=== PATIENT | female | born 1945 | race Caucasian/White ===

== ENCOUNTER → 2016-10-20 | Outpatient (CLI) | payer MEDICARE ==
--- NOTE | 2016-10-21 13:43 | MM ---
Reason for exam: screening (asymptomatic). Last mammogram was performed 1 year and 2 months ago. History: Patient is postmenopausal. Taking other hormone for 10 years. Physical Findings: A clinical breast exam by your physician is recommended on an annual basis and results should be correlated with mammographic findings. MG 3D Screening Mammo W/Cad Bilateral CC and MLO view(s) were taken. Prior study comparison: August 05, 2015, bilateral MG 3d screening mammo w/cad. August 08, 2013, bilateral digital screening mammo w/CAD. There are scattered fibroglandular densities. There is chronic nodularity bilaterally, greater in the left breast. There is no dominant lesion. ASSESSMENT: Benign, BI-RAD 2 RECOMMENDATION: Routine screening mammogram of both breasts in 1 year.
== END | disposition home or self-care (01) ==
LOC: RADMAMWWP 10:54
PROVIDERS: ATTEND Internal Medicine
DX: Z12.31 Encounter for screening mammogram for malignant neoplasm of breast (principal)
CPT/HCPCS: 77052; 77063; G0202

== ENCOUNTER 2018-01-26 08:16 | Day surgery (SDC) | payer MEDICARE ==
[2018-01-25 09:58] VITALS: BMI 43.2
[~2018-01-26 08:16] MED LIST: LACTATED RINGERS 1,000 ML IV SCH; SODIUM CHLORIDE 0.9% 1,000 ML IV SCH
[2018-01-26 08:55] VITALS: TEMP 97.6
[2018-01-26] MEDS ORDERED: LIDOCAINE 1% INJ 10MG/ML (20 ML MDV) ONE (09:26)
[2018-01-26] MEDS ORDERED: PROPOFOL 10 MG/ML 20 ML VIAL IV ONE (09:26)
--- NOTE | 2018-01-26 09:51 | P.PCN ---
Preoperative Diagnosis: Procedure Electrical cardioversion for atrial fibrillation Indication for the procedure Symptomatic atrial fibrillation with RVR Procedure details Anesthesia in attendance Successful electrical cardioversion with a single 360 J shock, biphasic, AP configuration to sinus rhythm Plan Continue anticoagulation and continue flecainide and metoprolol Follow Dr. Colvin in 4 weeks Anesthesia: MAC Condition: stable
[2018-01-26 12:54] VITALS: RESP 18
[2018-01-26 12:56] VITALS: BP 108/54; PULSE 54
== END 2018-01-26 12:23 | disposition home or self-care (01) ==
LOC: CATHEP 08:16
PROVIDERS: ATTEND Internal Medicine Clinical Cardiac Electrophysiology
DX: I48.1 Persistent atrial fibrillation (principal); I25.10 Atherosclerotic heart disease of native coronary artery without angina pectoris; I42.9 Cardiomyopathy, unspecified; I10 Essential (primary) hypertension; E78.5 Hyperlipidemia, unspecified; E03.9 Hypothyroidism, unspecified; Z79.01 Long term (current) use of anticoagulants; Z79.899 Other long term (current) drug therapy; Z88.5 Allergy status to narcotic agent; Z88.8 Allergy status to other drugs, medicaments and biological substances; Z91.040 Latex allergy status
CPT/HCPCS: 92960; J2001; J2704; 93005

== ENCOUNTER → 2018-02-14 | Outpatient (CLI) | payer MEDICARE ==
--- NOTE | 2018-02-14 19:06 | BD ---
EXAMINATION TYPE: MG DEXA axial skeleton. DATE OF EXAM: 02/14/2018 CLINICAL HISTORY: 72-year-old female with menopausal and perimenopausal disorders Height: 64.5 Weight: 270 FRAX RISK QUESTIONS: Alcohol (3 or more units per day): no Family History (Parent hip fracture): no Glucocorticoids (More than 3mos): no (Ex: prednisone, prednisolone, methylprednisolone, dexamethasone, and hydrocortisone). History of Fracture in Adulthood: yes, ankle...long time ago Secondary Osteoporosis: 1. Type 1 Diabetes: no 2. Hyperthyroidism: unsure 3. Menopause before 45: no 4. Malnutrition: no 5. Chronic liver disease: no Rheumatoid Arthritis: no Current Tobacco Use: no RISK FACTORS HISTORY OF: Family History of Osteoporosis: cousin Active: yes Diet low in dairy products/other sources of calcium: several servings a week Postmenopausal woman: yes Take estrogen and/or progesterone medications: no Lost more than 2 inches in height since high school: no Frequent falls: no Poor Health: no Hyperparathyroidism: no Adrenal Insufficiency: no MEDICATIONS: Prednisone or other steroids: no Thyroid Medications:yes Which medication unsure How Lon-15 years Osteoporosis Medications: no Additional Medications: calcium with Vitamin D; blood pressure meds Additional History: had a "bout" with "A-Fib" a few years back EXAM MEASUREMENTS: Bone mineral densitometry was performed using the reQwip System. Bone mineral density as measured about the Lumbar spine is: ----- L1-L4(G/cm2): 1.469 T Score Values are as follows: ----- L2: 0.7 ----- L3: 1.6 ----- L4: 5.5 ----- L1-L4: 2.4 Bone mineral density has: Increased 27.3% since study of: 07/03/2006 Bone mineral density about the R hip (g/cm2): 0.953 Bone mineral density about the L hip (g/cm2): 1.019 T Score values are as follows: -----R Neck: -0.6 -----L Neck: -0.1 -----R Total: 0.8 -----L Total: 0.6 Bone mineral density has: Increased 11.0% since study of: 07/03/2006 IMPRESSION: Normal (Values between +1 and -1 indicate normal bone mass). Consider repeating this study in 5 year s or sooner if there is some new clinical indication. NOTE: T-SCORE=SD OF THE YOUNG ADULT MEAN.
== END | disposition home or self-care (01) ==
LOC: RADBDWWP 07:48
PROVIDERS: ATTEND Internal Medicine
DX: N95.8 Other specified menopausal and perimenopausal disorders (principal)
CPT/HCPCS: 77080

== ENCOUNTER → 2019-07-30 | Day surgery (SDC) | payer MEDICARE ==
[2019-07-24 17:10] VITALS: BMI 44.1
[~2019-07-30] MED LIST changes: +ALPRAZolam 0.25 MG TAB PO PRN; +ALPRAZolam 0.5 MG TAB PO PRN; +ASPIRIN 325 MG TAB PO ONE; +ATORVASTATIN 80 MG TAB PO ONE; +HEPARIN SODIUM 1,000 UN/ML (10ML VL) IV ONE; +HEPARIN SODIUM 1,000 UN/ML (10ML VL) ONE; +HYDROmorphone 1 MG/ML 1 ML SYRINGE IVP ONE; +IOPAMIDOL-370 125ML BTL INJ ONE; -LACTATED RINGERS 1,000 ML IV SCH; +LIDOCAINE 1% INJ 10MG/ML (20 ML MDV) ONE; +LIDOCAINE 1% INJ 10MG/ML (20 ML MDV) SQ ONE; +MIDAZOLAM 2 MG/2 ML VIAL IV ONE; +NITROGLYCERIN SL TABS 0.4 MG TAB SUBLINGUAL PRN; +RX INFO: IV CONTRAST WAS GIVEN 1 EACH MISC MISCELLANE PRN; +SODIUM CHLORIDE 0.9% 1,000 ML in EMPTY BAG 1 BAG IV ONE; +VERAPAMIL 2.5 MG/ML 2 ML AMP ONE; +VERAPAMIL SYRINGE (5 MG/10 ML) INTRAARTER ONE; +hydrALAZINE HCL 20 MG/ML 1 ML VIAL IVP ONE
[2019-07-30 07:06] VITALS: RESP 18; TEMP 98
--- NOTE | 2019-07-30 08:52 | LTR ---
DATE OF SERVICE: July 30, 2019 RE: Janette Almendarez Dear Dr. Bradshaw: Ms. Janette Ortiz underwent a heart catheterization today and that revealed intermediate disease involving the mid left circumflex coronary artery and I advised maximized medical treatment only. I want to thank you for allowing us to participate in her care and please do not hesitate to call if you have any question or concerns. Sincerely, Jad Alonso MD MMVALARIE / ALN: [id number] /
--- NOTE | 2019-07-30 08:52 | CC ---
CARDIAC CATHETERIZATION REPORT DATE OF SERVICE: 07/30/2019 PERFORMING PHYSICIAN: Jad Alonso MD, Patient Relations Manager. PROCEDURE PERFORMED: 1. Selective right and left coronary angiogram. 2. Left heart catheterization. INDICATION: This is a 74-year-old female patient with history of coronary artery disease, chronic persistent atrial fibrillation on long-term anticoagulation, hypertension, and dyslipidemia, was experiencing increasing in the shortness of breath. She underwent an echocardiogram which revealed cardiomyopathy. The stress test revealed ischemia in the anteroseptal segments of the LV. Because of that, a heart catheterization was advised. APPROACH: Right radial artery. COMPLICATION: None. LEVEL OF SEDATION: Moderate with sedation length of 15 minutes. PROCEDURE DESCRIPTION: After obtaining an informed consent, the patient was brought to the cardiac sawyer cork slabs. The right radial artery was cannulated using micropuncture technique, the micropuncture wire passed easily, then I placed a 6-[place] sheath. I gave the patient after that 2 mg of verapamil IA and 10,000 units of heparin IV. I did perform selective right and left coronary angiogram using JR4 and JL3.5 catheters. Left heart catheterization was performed using the JR4 catheter which crossed the aortic valve. I did after that, pullback after the catheter was flushed. The procedure was completed without any complication. SELECTIVE CORONARY ANGIOGRAM: 1. The right coronary artery is a large caliber vessel and it is a dominant vessel. The RCA has mild disease in the proximal portion, but in the mid and distal portion it is angiographically normal and bifurcates into PDA and PLV branches, both appeared to be angiographically normal. 2. The left main is long, but angiographically normal. It bifurcates into left circumflex and left anterior descending artery. 3. The left circumflex is a large caliber vessel, it is a nondominant vessel. The mid left circumflex just proximal to the bifurcation of a large OM branch appeared to have a lesion in the range of 50%. First OM branch appeared to be angiographically normal. The circumflex continued after that as a medium caliber vessel in the AV groove. 4. The LAD, the proximal LAD appears to be angiographically normal. The mid LAD appeared to be normal as well and the LAD distally is angiographically normal. The LAD gives rise into a large diagonal branch which has mild disease in its ostium. HEMODYNAMICS: The LVEDP was 10-12 mmHg without significant gradient across the aortic valve. CONCLUSION: 1. Intermediate disease involving the mid left circumflex, appeared to be in the range of 50%. 2. Normal left ventricular end-diastolic pressure. POSTPROCEDURE MANAGEMENT: 1. Aggressive cholesterol control. 2. Risk factors modifications. 3. Medical treatment. 4. Follow up with the patient. MMODL / IJN: [id number] /
[2019-07-30 13:11] VITALS: BP 116/62; PULSE 86
== END ==
LOC: CATHCVL 06:29
PROVIDERS: ATTEND Internal Medicine Interventional Cardiology
DX: I25.110 Atherosclerotic heart disease of native coronary artery with unstable angina pectoris (principal); I42.9 Cardiomyopathy, unspecified; I48.91 Unspecified atrial fibrillation; I10 Essential (primary) hypertension; E78.00 Pure hypercholesterolemia, unspecified; E78.5 Hyperlipidemia, unspecified; E03.9 Hypothyroidism, unspecified; E66.9 Obesity, unspecified; Z79.01 Long term (current) use of anticoagulants; Z79.890 Hormone replacement therapy; Z79.899 Other long term (current) drug therapy; Z91.040 Latex allergy status; Z88.6 Allergy status to analgesic agent; Z88.5 Allergy status to narcotic agent; Z68.41 Body mass index [BMI] 40.0-44.9, adult
CPT/HCPCS: 93458; C1769; C1894; J2250; J2001; J1644; Q9967

== ENCOUNTER → 2019-10-07 | Outpatient (CLI) | payer MEDICARE ==
--- NOTE | 2019-10-11 12:39 | MM ---
Reason for exam: screening (asymptomatic). Last mammogram was performed 3 years ago. History: Patient is postmenopausal. Taking other hormone for 10 years. Physical Findings: A clinical breast exam by your physician is recommended on an annual basis and results should be correlated with mammographic findings. MG 3D Screening Mammo W/Cad Bilateral CC and MLO view(s) were taken. Prior study comparison: October 20, 2016, bilateral MG 3d screening mammo w/cad. August 05, 2015, bilateral MG 3d screening mammo w/cad. The breast tissue is heterogeneously dense. This may lower the sensitivity of mammography. There is chronic nodularity in the left breast. There is no discrete abnormality. ASSESSMENT: Benign, BI-RAD 2 RECOMMENDATION: Routine screening mammogram of both breasts in 1 year.
== END | disposition home or self-care (01) ==
LOC: RADMAMWWP 14:16
PROVIDERS: ATTEND Internal Medicine
DX: Z12.31 Encounter for screening mammogram for malignant neoplasm of breast (principal)
CPT/HCPCS: 77063; 77067

== ENCOUNTER → 2024-11-11 | Outpatient (CLI) | payer MEDICARE ==
[2024-11-11 15:17] LABS: HCT 44.2 % (37.2-46.3); HGB 13.6 g/dL (12.0-15.0); MCH 27.6 pg (27.0-32.0); MCHC 30.8 g/dL (32.0-37.0); MCV 89.8 FL (80.0-97.0); Mean Platelet Volume 12.1 FL (9.5-12.2); NRBC Per 100 WBC 0 X 10*3/uL (0.00-0.01); Platelet Count 193 X 10*3/uL (140-440); RBC 4.92 X 10*6/uL (4.10-5.20); RDW 14.5 % (11.5-14.5); WBC 7.12 X 10*3/uL (4.50-10.00)
[2024-11-11 16:40] LABS: Blood Urea Nitrogen 18.1 mg/dL (9.0-27.0); Carbon Dioxide 19.7 mmol/L (21.6-31.8); Chloride 111 mmol/L (96-109); Potassium 4.3 mmol/L (3.5-5.5); Sodium 147 mmol/L (135-145)
== END | disposition home or self-care (01) ==
LOC: LABWHC1 10:55
PROVIDERS: ATTEND Internal Medicine Clinical Cardiac Electrophysiology
DX: Z01.812 Encounter for preprocedural laboratory examination (principal); I48.19 Other persistent atrial fibrillation; I48.92 Unspecified atrial flutter
CPT/HCPCS: 36415; 80051; 82565; 84520; 85027